=== PATIENT | male | born 1960 | race Caucasian/White ===

== ENCOUNTER 2023-04-28 19:40 | Outpatient (CLI) | payer BC | END 2023-04-29 05:30 | disposition home or self-care (01) | LOC: 3 N SLEEP 19:40 | PROVIDERS: ATTEND Internal Medicine Critical Care Medicine | DX: G47.33 Obstructive sleep apnea (adult) (pediatric) (principal) | CPT/HCPCS: 95811 ==

== ENCOUNTER → 2024-04-06 | Outpatient (CLI) | payer BC ==
--- NOTE | 2024-04-06 10:42 | XR ---
EXAMINATION TYPE: XR lumbar spine 2 or 3V DATE OF EXAM: 04/06/2024 CLINICAL HISTORY: pain TECHNIQUE: Three views of the lumbar spine are submitted. COMPARISON: None. FINDINGS: There are 5 lumbar type vertebral bodies identified. The lumbar spine shows satisfactory alignment w ithout evidence of acute fracture or dislocation. Vertebral body heights are within normal limits. Moderate degenerative disc space narrowing L4-5 and L5-S1. Ventral spondylosis and facet joint arthro miguelina. The overlying soft tissue appears unremarkable. IMPRESSION: No acute fracture or dislocation is seen in the lumbar spine. ICD 10 NO FRACTURE, INITIAL EVALUATION [facility], , 04/06/2024 10:39 AM
== END | disposition home or self-care (01) ==
LOC: RADXRMAIN 09:56
PROVIDERS: ATTEND Internal Medicine
DX: M47.816 Spondylosis without myelopathy or radiculopathy, lumbar region (principal)
CPT/HCPCS: 72100

== ENCOUNTER → 2024-04-17 | Outpatient (CLI) | payer BC ==
--- NOTE | 2024-04-17 18:31 | MR ---
EXAMINATION TYPE: MR lumbar spine wo con DATE OF EXAM: 04/17/2024 5:52 PM CLINICAL INDICATION: Male, 63 years old with history of M47.816, M51.360e, Low back pain and tingling into both legs worse last 2 weeks COMPARISON: Radiograph 04/06/2024 TECHNIQUE: Multi planar, multi sequence imaging was performed utilizing: T1-weighted, T2-weighted, a nd turbo inversion recovery imaging of the lumbar spine. IV Contrast: cc . (None if empty) FINDINGS: Alignment: The lumbar vertebral bodies have preserved heights and alignment. Cord: The conus medullaris and the distal spinal cord appear unremarkable with regards to their signa l intensity and morphology. Bones/Discs: Mild degeneration changes throughout the spine with osteophyte formation and facet joint arthropathy. Intervertebral disc signal is maintained. No abnormal inversion recovery signal to sugg est bony edema. T12-L1: No evidence of significant spinal canal stenosis or neural foraminal stenosis. L1-L2: No evidence of significant spinal canal stenosis or neural foraminal stenosis. L2-L3: No evidence of significant spinal canal stenosis or neural foraminal stenosis. L3-L4: Disc bulge and facet joint arthropathy result in mild spinal canal and mild bilateral neural f oraminal stenosis. L4-L5: Left central disc aL protrusion with severe spinal canal stenosis and moderate to severe bilat eral neural foraminal stenosis. L5-S1: The disc has a rounded posterior morphology without significant spinal canal stenosis. Facet j oint arthropathy with moderate to severe right and severe left bilateral neural foraminal stenosis. No significant spinal canal or neural foraminal stenosis in the remainder of the visualized levels. Other findings: None. IMPRESSION: 1. L4-L5 left central disc protrusion with severe spinal canal stenosis with bunching of the cauda e quina. There is moderate bilateral neural foraminal cirrhosis. 2. L5-S1 with severe left and moderate severe right neural foraminal stenosis. [facility], , 04/17/2024 6:28 PM
== END ==
LOC: RADMRIMAIN 17:03
PROVIDERS: ATTEND Internal Medicine
CPT/HCPCS: 72148